=== PATIENT | female | born 1975 | race Caucasian/White ===

== ENCOUNTER 2017-01-17 04:38 | Emergency (ER) | payer MEDICARE, OTHER ==
[2017-01-17 07:50] LABS: HEMOGLOBIN 11.8 gm/dl (12.3-15.3); WHITE BLOOD COUNT 9.9 K/UL (4.5-11.0)
[2017-01-17 08:08] LABS: BUN/CREATININE RATIO 20 (0-10)
== END 2017-01-17 09:41 | disposition home or self-care (01) ==
LOC: ER1 04:38
PROVIDERS: Emergency Medicine
DX: N20.0 Calculus of kidney (principal); I10 Essential (primary) hypertension; J44.9 Chronic obstructive pulmonary disease, unspecified; F17.200 Nicotine dependence, unspecified, uncomplicated
CPT/HCPCS: 36415; 74000; 80053; 81001; 84703; 85025; 87086; 96374; 96375; 99284; J0696; J1885; J2270; J2405; J7030; J7050